=== PATIENT | male | born 1950 | race Caucasian/White ===

== ENCOUNTER 2020-09-28 16:57 | Emergency (ER) | payer MEDICARE, SELFPAY ==
--- NOTE | ~2020-09-28 | XR_ITS ---
EXAMINATION: XR ABDOMEN KUB CLINICAL INDICATION: G-tube position COMPARISON: None TECHNIQUE: AP view of the abdomen. FINDINGS: A G-tube is present in the left upper quadrant. Contrast has been injected which definitively shows the tip of the catheter into the within the stomach and Position. The bowel gas pattern is normal with no evidence of ileus or obstruction. No unusual soft tissue calcifications are noted. The bones are unremarkable. XR/XR abdomen 1V IMPRESSION: G-tube is present in the stomach
[2020-09-28 17:31] VITALS: BP 148/71; PULSE 60; RESP 20; TEMP 36.6; O2SAT 98; BMI 21.5
[2020-09-28 17:51] VITALS: BP 162/69; PULSE 58; RESP 18; TEMP 36.9; O2SAT 98
--- NOTE | 2020-09-28 17:53 | PC.NURSE ---
patient a&ox3, peg tube fell out, pt has old peg tube with him- 16F, patient has no c/o pain or discomfort at this time, vss, will continue to monitor.
--- NOTE | 2020-09-28 18:59 | PC.NURSE ---
provider inserted new g-tube size 18
--- NOTE | 2020-09-28 19:02 | ED_ITS ---
HPI - General Adult General Chief complaint: General Medical Stated complaint: G tube came out Time Seen by Provider: 09/28/20 18:46 Source: patient Mode of arrival: ambulatory Limitations: no limitations History of Present Illness HPI narrative: Patient comes to emergency room complaining dislodging his G- tube. Patient states he was taking a shower, then drawing his body, and he accidentally pulled the G-tube out. The G-tube was placed in June of 2020 per the patient. Patient denies any abdominal pain. MD complaint: Dislodged G-tube Related Data Allergies Allergy/AdvReac Type Severity Reaction Status Date / Time lisinopril [LISINOPRIL] Allergy Severe ANGIOEDEMA Unverified 05/05/20 17:04 Review of Systems Review of Systems: Constitutional : No Weight loss, No Fever, No Chills, No Night Sweats, No Fatigue, No Malaise ENT/Mouth : No Hearing loss, No Ear Pain, No Nasal Congestion, No Sinus Pain, No Hoarseness, No sore throat, No Rhinorrhea, No Swallowing Difficulty Eyes: No Eye Pain, No Swelling, No Redness, No Foreign Body, No Discharge, No Vision Changes Cardiovascular : No Chest Pain, No SOB, No Dyspnea on Exertion, No Orthopnea, No Edema, No Palpitations Respiratory : No Cough, No Sputum, No Wheezing, No Smoke Exposure, No Dyspnea Gastrointestinal : No Nausea, No Vomiting, No Diarrhea, No Constipation, No abdominal Pain, No Hematochezia, No Melena, dislodged G-tube Genitourinary : no irregular bleeding, No Dysuria, No Urinary Frequency, No Hematuria, No Urinary Incontinence, No Urgency, No Flank Pain, No Urinary Flow Changes, No Hesitancy Musculoskeletal : No joint pain, No Myalgias, No Joint Swelling Skin : No Skin Lesions, No rash Neuro : No Weakness, No Numbness, No Paresthesias, No Loss of Consciousness, No Dizziness, No Headache Psych : No Anxiety/Panic, No Depression, No SI/HI/AH/VH, No Social Issues, Heme/Lymph: No Bruising, No Bleeding,No Lymphadenopathy Endocrine : No Polyuria, No Polydipsia, No Temperature Intolerance PMFSH Past Medical History Medical History Falls frequently HTN (hypertension) Surgical History PEG (percutaneous endoscopic gastrostomy) status Social History Social History Alcohol intake: former Smoking Status: Former smoker Use of substances other than those prescribed or required for medical reasons: No Advance Directives: No Advance Directives Information Provided: No Physical Exam Vital Signs: Vital Signs: Last Vital Signs Temp 98.4 F 09/28/20 17:51 Pulse 58 09/28/20 17:51 Resp 18 09/28/20 17:51 BP 162/69 H 09/28/20 17:51 Pulse Ox 98 09/28/20 17:51 Body Mass Index 21.5 Appearance: Alert. Oriented X3. No acute distress. Eyes: Pupils equal, round and reactive to light. ENT: Pharynx normal. Neck: Normal inspection. Neck supple. No lymph nodes noted. No crepitus CVS: Normal heart rate and rhythm. Pulses normal. Normal S1 and S2 Respiratory: No respiratory distress. Breath sounds normal. No Wheezing. No r ales Abdomen: Soft and nontender. No rigidity. No distention. good BS x4, patent G- Tube stoma Skin: Skin warm and dry. Normal skin color. Normal skin turgor. Extremities: No lower extremity edema. No lower extremity edema. No Lacerations. No Rash Neuro: Oriented X 3. No motor deficit. No sensory deficit. Moving all extermities. No slurred speech. Course Course Course Narrative: Patient's stoma was patent, patient usually uses [place] 16 G tube, we did not have any in house, therefore 18 G tube was placed. Patient tolerated it well. Contrast was injected for a KUB, G-tube is currently placed. Medical Decision Making Imaging Data KUB for G-tube placement: My impression: G-tube placement is correct Discharge Plan Discharge Clinical Impression: Gastrostomy tube dysfunction Patient Disposition: Home, Self-Care Additional Instructions: Please follow-up with your primary care physician tomorrow. If you have any worsening or new symptoms, please return to the emergency room or call [phone]
--- NOTE | 2020-09-28 19:05 | PC.NURSE ---
xray in room to do kub
[2020-09-28] MEDS: Diatrizoate Meglumine, Sodium 30 ML SOLUTION PO (19:12)
== END 2020-09-28 19:32 | disposition home or self-care (01) ==
PROVIDERS: Emergency Provider Emergency Medicine; PCP Nurse Practitioner Family
DX: K94.23 Gastrostomy malfunction (principal); I10 Essential (primary) hypertension; Z91.81 History of falling
CPT/HCPCS: 43762; 74018; 99283; 99284

== ENCOUNTER 2020-10-19 12:06 | Outpatient (REF) | payer MEDICARE, SELFPAY ==
--- NOTE | ~2020-10-19 | XR_ITS ---
EXAMINATION: BILATERAL SHOULDER X-RAY CLINICAL INFORMATION: Pain COMPARISON: Bilateral shoulder x-ray March 2017 and April 2020 TECHNIQUE: 4 views of each shoulder FINDINGS: Left: Bone alignment is normal. No acute fracture or dislocation is seen. There is an old healed fracture of the left distal clavicle. There are old left second third and fourth rib fractures. The glenohumeral joint is normal. There is mild arthritis at the acromioclavicular joint. There is a small soft tissue calcification or ossification adjacent to the greater tuberosity. Right: Bone alignment is normal. No acute fracture or dislocation is seen. There is evidence of an old healed fracture of the distal clavicle. The glenohumeral joint is normal. There is mild arthritis at the acromioclavicular joint. Soft tissues are unremarkable. XR/XR cervical spine 4V IMPRESSION: Left shoulder: Old trauma to the distal clavicle and left second through fourth ribs. Arthritis at the acromioclavicular joint. Small soft tissue calcification adjacent to the greater tuberosity. Right shoulder: Old trauma to the distal clavicle. Arthritis at the acromioclavicular joint. EXAMINATION: Cervical spine x-ray CLINICAL INFORMATION: Neck pain COMPARISON: Previous cervical spine CT most recent April 2020 TECHNIQUE: 5 views of the cervical spine including bilateral oblique views FINDINGS: Lower cervical spine is not well visualized on the lateral view. Bone alignment is normal. No fracture or dislocation is seen. There is degenerative spondylosis and degenerative disc disease from C4-C5 to C6-C7.. There is mild right-sided neural foraminal narrowing from bony osteophyte at C4-C5 and C5-C6. There is mild left-sided neuroforaminal narrowing from bony osteophyte at C5-C6. Prevertebral soft tissues are normal. IMPRESSION: Degenerative changes of the lower cervical spine.
--- NOTE | ~2020-10-19 | XR_ITS ---
EXAMINATION: BILATERAL SHOULDER X-RAY CLINICAL INFORMATION: Pain COMPARISON: Bilateral shoulder x-ray March 2017 and April 2020 TECHNIQUE: 4 views of each shoulder FINDINGS: Left: Bone alignment is normal. No acute fracture or dislocation is seen. There is an old healed fracture of the left distal clavicle. There are old left second third and fourth rib fractures. The glenohumeral joint is normal. There is mild arthritis at the acromioclavicular joint. There is a small soft tissue calcification or ossification adjacent to the greater tuberosity. Right: Bone alignment is normal. No acute fracture or dislocation is seen. There is evidence of an old healed fracture of the distal clavicle. The glenohumeral joint is normal. There is mild arthritis at the acromioclavicular joint. Soft tissues are unremarkable. XR/XR shoulder RT min 2V IMPRESSION: Left shoulder: Old trauma to the distal clavicle and left second through fourth ribs. Arthritis at the acromioclavicular joint. Small soft tissue calcification adjacent to the greater tuberosity. Right shoulder: Old trauma to the distal clavicle. Arthritis at the acromioclavicular joint. EXAMINATION: Cervical spine x-ray CLINICAL INFORMATION: Neck pain COMPARISON: Previous cervical spine CT most recent April 2020 TECHNIQUE: 5 views of the cervical spine including bilateral oblique views FINDINGS: Lower cervical spine is not well visualized on the lateral view. Bone alignment is normal. No fracture or dislocation is seen. There is degenerative spondylosis and degenerative disc disease from C4-C5 to C6-C7.. There is mild right-sided neural foraminal narrowing from bony osteophyte at C4-C5 and C5-C6. There is mild left-sided neuroforaminal narrowing from bony osteophyte at C5-C6. Prevertebral soft tissues are normal. IMPRESSION: Degenerative changes of the lower cervical spine.
--- NOTE | ~2020-10-19 | XR_ITS ---
EXAMINATION: BILATERAL SHOULDER X-RAY CLINICAL INFORMATION: Pain COMPARISON: Bilateral shoulder x-ray March 2017 and April 2020 TECHNIQUE: 4 views of each shoulder FINDINGS: Left: Bone alignment is normal. No acute fracture or dislocation is seen. There is an old healed fracture of the left distal clavicle. There are old left second third and fourth rib fractures. The glenohumeral joint is normal. There is mild arthritis at the acromioclavicular joint. There is a small soft tissue calcification or ossification adjacent to the greater tuberosity. Right: Bone alignment is normal. No acute fracture or dislocation is seen. There is evidence of an old healed fracture of the distal clavicle. The glenohumeral joint is normal. There is mild arthritis at the acromioclavicular joint. Soft tissues are unremarkable. XR/XR shoulder LT min 2V IMPRESSION: Left shoulder: Old trauma to the distal clavicle and left second through fourth ribs. Arthritis at the acromioclavicular joint. Small soft tissue calcification adjacent to the greater tuberosity. Right shoulder: Old trauma to the distal clavicle. Arthritis at the acromioclavicular joint. EXAMINATION: Cervical spine x-ray CLINICAL INFORMATION: Neck pain COMPARISON: Previous cervical spine CT most recent April 2020 TECHNIQUE: 5 views of the cervical spine including bilateral oblique views FINDINGS: Lower cervical spine is not well visualized on the lateral view. Bone alignment is normal. No fracture or dislocation is seen. There is degenerative spondylosis and degenerative disc disease from C4-C5 to C6-C7.. There is mild right-sided neural foraminal narrowing from bony osteophyte at C4-C5 and C5-C6. There is mild left-sided neuroforaminal narrowing from bony osteophyte at C5-C6. Prevertebral soft tissues are normal. IMPRESSION: Degenerative changes of the lower cervical spine.
== END 2020-10-19 12:07 | disposition home or self-care (01) ==
LOC: HO.XRAY 12:06
PROVIDERS: PCP Internal Medicine; Visit Provider Internal Medicine
DX: M54.2 Cervicalgia (principal); M79.601 Pain in right arm; M79.602 Pain in left arm
CPT/HCPCS: 72050; 73030

== ENCOUNTER → 2020-11-28 10:12 | Outpatient (BNVA) | payer MEDICARE, SELFPAY | PROVIDERS: PCP Internal Medicine; Visit Provider Orthopaedic Surgery | DX: M75.102 Unspecified rotator cuff tear or rupture of left shoulder, not specified as traumatic (principal); R29.6 Repeated falls | CPT/HCPCS: 20610; 99202; J1100 ==

== ENCOUNTER → 2020-12-07 12:55 | Outpatient (BNVA) | payer MEDICARE, SELFPAY | PROVIDERS: PCP Internal Medicine; Visit Provider Nurse Practitioner Family | DX: G62.9 Polyneuropathy, unspecified (principal); M25.511 Pain in right shoulder; M25.512 Pain in left shoulder | CPT/HCPCS: 99202 ==

== ENCOUNTER 2020-12-26 10:43 | Outpatient (REF) | payer MEDICARE, SELFPAY ==
--- NOTE | ~2020-12-26 | CT_ITS ---
EXAMINATION: CT CHEST WITHOUT CONTRAST CLINICAL INFORMATION: Nicotine dependence COMPARISON: Previous chest x-ray most recent April 2020 TECHNIQUE: Multidetector volumetric CT imaging of the chest was done. Axial MIP volume rendering provided. Sagittal and coronal reformatted images were obtained. This CT examination was performed using dose optimization techniques as appropriate, variously including the following: *Automated exposure control *Adjustment of mA and/or kV according to patient size (this includes techniques or standardized protocols for targeted exams where dose is matched to indication/reason for exam; i.e. extremities or head) *Use of iterative reconstruction technique DLP: 170 mGy-cm FINDINGS: LUNGS: There is biapical pleural parenchymal scarring. There is evidence of emphysema. There is a abnormal parenchymal density seen in the right upper lobe adjacent to areas of emphysematous change. This measures approximately 0.8 x 1.2 cm axial image 72 series 7 and is unchanged. There are bilateral pulmonary nodules. Largest nodule is a 0.8 x 1.3 cm left lower lobe nodule axial image 460 series 7. This is increased in size from by 9 mm on most recent exam March 2017. Pulmonary nodules are otherwise stable. There is new subsegmental atelectasis in the left lower lobe. MEDIASTINUM: There is coronary artery calcification. The mediastinum is otherwise normal. PLEURA: There is a new trace left pleural effusion and loculated fluid in the left pleural fissure. There is no right pleural effusion. AXILLA: No lymphadenopathy. UPPER ABDOMEN: Unremarkable. OSSEOUS STRUCTURES: There are degenerative changes of the spine. There are old bilateral rib fractures. CT/CT chest wo con IMPRESSION: Emphysema. Question slight interval increase in size in the largest pulmonary nodule in the left lower lobe. Pulmonary nodules are otherwise stable. Coronary artery calcification.
== END 2020-12-26 10:44 | disposition home or self-care (01) ==
LOC: HO.CT 10:43
PROVIDERS: PCP Internal Medicine; Visit Provider Internal Medicine
DX: J44.9 Chronic obstructive pulmonary disease, unspecified (principal); F17.200 Nicotine dependence, unspecified, uncomplicated
CPT/HCPCS: 71250

== ENCOUNTER 2021-01-19 08:19 | Outpatient (REF) | payer MEDICARE, SELFPAY ==
--- NOTE | ~2021-01-19 | MR_ITS ---
MR CERVICAL SPINE WITHOUT IV CONTRAST CLINICAL INFORMATION: Cervical region radiculopathy. COMPARISON: None available. TECHNIQUE: MRI of the cervical spine was obtained using routine sequences without contrast. FINDINGS: Cervical alignment is maintained. Vertebral body heights are preserved. Moderate disc volume loss at C5-C6 and C6-C7. Modic type I endplate signal changes at C6-C7 and at T2-T3. There is no additional bone marrow edema. There are no acute fractures. Craniocervical junction is unremarkable. The cervical arterial flow voids are maintained. No significant extraspinal soft tissue findings. There is no cord signal abnormality. Multilevel endplate osteophytes. The partially imaged intracranial compartment is unremarkable. C2-C3: Disc contour is normal. No central canal stenosis and no foraminal stenosis. C3-C4: Central disc osteophyte protrusion and ligamentum flavum thickening mildly narrow the central canal. Advanced uncovertebral joint hypertrophy and hypertrophic facet arthropathy result in moderate to severe right and moderate left foraminal stenosis. C4-C5: Disc osteophyte mildly narrows the central canal. Uncovertebral joint hypertrophy and hypertrophic facet arthropathy result in mild to moderate left-sided foraminal stenosis C5-C6: Disc osteophyte without central canal stenosis. Uncovertebral joint hypertrophy and hypertrophic facet arthropathy result in mild bilateral foraminal encroachment. C6-C7: Disc osteophyte without central canal stenosis. Advanced uncovertebral joint hypertrophy and hypertrophic facet arthropathy result in severe left-sided foraminal stenosis. C7-T1: Disc osteophyte without central canal stenosis. Bilateral facet arthropathy. Mild bilateral foraminal encroachment. MR/MR cervical spine wo con IMPRESSION: Multilevel cervical spondylosis. Advanced spondylitic changes result in severe right and moderate left C3-C4 as well as severe left C6-7 foraminal stenosis. No severe central canal stenosis within the cervical spine.
== END 2021-01-19 08:20 | disposition home or self-care (01) ==
LOC: HO.MRI 08:19
PROVIDERS: Visit Provider Anesthesiology
DX: M54.12 Radiculopathy, cervical region (principal)
CPT/HCPCS: 72141

== ENCOUNTER 2021-03-27 10:25 | Outpatient (REF) | payer MEDICARE, SELFPAY ==
--- NOTE | ~2021-03-27 | XR_ITS ---
EXAMINATION: THORACIC AND LUMBAR SPINE. INDICATION: Low back pain. 3 views of the lumbosacral spine demonstrate [id number] degenerative changes. Loss of disc height at multiple levels with osteophytic change in the endplates. There is no listhesis or compression injury or significant scoliosis. Calcified aorta is seen more anterior. Likely degeneration of the posterior elements of the lower lumbar spine. 3 views of the thoracic spine show mild degenerative change. Loss of disc height which is mild. No listhesis or compression injury. XR/XR thoracic spine 2V IMPRESSION: Degenerative changes which appear [id number] in the lumbosacral spine and more mild in the thoracic spine. No listhesis or compression injury.
--- NOTE | ~2021-03-27 | XR_ITS ---
EXAMINATION: THORACIC AND LUMBAR SPINE. INDICATION: Low back pain. 3 views of the lumbosacral spine demonstrate [id number] degenerative changes. Loss of disc height at multiple levels with osteophytic change in the endplates. There is no listhesis or compression injury or significant scoliosis. Calcified aorta is seen more anterior. Likely degeneration of the posterior elements of the lower lumbar spine. 3 views of the thoracic spine show mild degenerative change. Loss of disc height which is mild. No listhesis or compression injury. XR/XR lumbar spine 2-3V IMPRESSION: Degenerative changes which appear [id number] in the lumbosacral spine and more mild in the thoracic spine. No listhesis or compression injury.
== END 2021-03-27 10:26 | disposition home or self-care (01) ==
LOC: HO.XRAY 10:25
PROVIDERS: PCP Internal Medicine; Visit Provider Psychiatry & Neurology Neurology
DX: M54.5 Low back pain (principal)
CPT/HCPCS: 72070; 72100

== ENCOUNTER → 2021-04-07 09:36 | Outpatient (BNVA) | payer MEDICARE, SELFPAY | PROVIDERS: PCP Internal Medicine; Visit Provider Urology | DX: R35.1 Nocturia (principal); R33.9 Retention of urine, unspecified | CPT/HCPCS: 51798; 99202 ==

== ENCOUNTER 2021-09-19 11:00 | Outpatient (REF) | payer MEDICARE, SELFPAY ==
[2021-09-19 12:31] LABS: Alanine Aminotransferase 7 U/L (0-40); Albumin Level 3.5 g/dL (3.5-5.0); Alkaline Phosphatase 73 U/L (39-117); Anion Gap 15 (12-20); Aspartate Amino Transferase 9 U/L (5-37); Bilirubin Direct 0.2 mg/dL (0.0-0.5); Bilirubin Total 0.4 mg/dL (0.0-1.0); Blood Urea Nitrogen 14 mg/dL (9-16); Calcium 8.6 mg/dL (8.4-10.2); Carbon Dioxide 21 mmol/L (22-29); Chloride 105 mmol/L (96-108); Estimated Glomerular Filt Rate 40; Glucose Random 78 mg/dL (60-115); Potassium 5.1 mmol/L (3.3-5.1); Sodium 136 mmol/L (135-145); Total Protein 7.2 g/dL (6.5-8.0)
== END 2021-09-19 11:01 | disposition home or self-care (01) ==
LOC: HO.LAB 11:00
PROVIDERS: PCP Internal Medicine; Visit Provider Psychiatry & Neurology Neurology
DX: R56.9 Unspecified convulsions (principal)
CPT/HCPCS: 36415; 80048; 80076

== ENCOUNTER 2022-02-01 09:25 | Outpatient (REF) | payer MEDICARE, SELFPAY ==
--- NOTE | ~2022-02-01 | XR_ITS ---
EXAMINATION: BILATERAL ANKLE X-RAY CLINICAL INFORMATION: Osteoarthritis COMPARISON: None TECHNIQUE: 3 views each ankle FINDINGS: Right: Bone alignment is normal. No fracture or dislocation is seen. The ankle mortise is normal. There is mild tissue arterial calcification. Soft tissues are otherwise normal. Left ankle: Bone alignment is normal. No fracture or dislocation is seen. The ankle mortise is normal. There is a small osteophyte projecting off the anterior navicular bone. There is mild arterial calcification. Soft tissues are otherwise normal. XR/XR ankle LT min 3V IMPRESSION: Soft tissue arterial calcification. Small osteophyte projecting off the anterior left navicular bone. Otherwise unremarkable exam.
--- NOTE | ~2022-02-01 | XR_ITS ---
EXAMINATION: BILATERAL ANKLE X-RAY CLINICAL INFORMATION: Osteoarthritis COMPARISON: None TECHNIQUE: 3 views each ankle FINDINGS: Right: Bone alignment is normal. No fracture or dislocation is seen. The ankle mortise is normal. There is mild tissue arterial calcification. Soft tissues are otherwise normal. Left ankle: Bone alignment is normal. No fracture or dislocation is seen. The ankle mortise is normal. There is a small osteophyte projecting off the anterior navicular bone. There is mild arterial calcification. Soft tissues are otherwise normal. XR/XR ankle RT min 3V IMPRESSION: Soft tissue arterial calcification. Small osteophyte projecting off the anterior left navicular bone. Otherwise unremarkable exam.
--- NOTE | ~2022-02-01 | XR_ITS ---
EXAMINATION: BILATERAL KNEE X-RAY CLINICAL INFORMATION: Osteoarthritis COMPARISON: Previous x-ray February 2020 TECHNIQUE: 3 views of each knee FINDINGS: Right: Bone alignment is normal. There may be an old healed fracture of the proximal fibular shaft. No acute fracture or dislocation is seen. The bones are osteopenic. Joint spaces are normal. There is no joint effusion. There is atherosclerotic disease. Left: Bone alignment is normal. No fracture or dislocation is seen. The joint spaces are normal. Bones are osteopenic. There is no joint effusion. There is atherosclerotic disease. XR/XR knee RT 3V IMPRESSION: Osteopenia and atherosclerotic disease. Old healed right proximal fibular shaft fracture.
--- NOTE | ~2022-02-01 | XR_ITS ---
EXAMINATION: BILATERAL KNEE X-RAY CLINICAL INFORMATION: Osteoarthritis COMPARISON: Previous x-ray February 2020 TECHNIQUE: 3 views of each knee FINDINGS: Right: Bone alignment is normal. There may be an old healed fracture of the proximal fibular shaft. No acute fracture or dislocation is seen. The bones are osteopenic. Joint spaces are normal. There is no joint effusion. There is atherosclerotic disease. Left: Bone alignment is normal. No fracture or dislocation is seen. The joint spaces are normal. Bones are osteopenic. There is no joint effusion. There is atherosclerotic disease. XR/XR knee LT 3V IMPRESSION: Osteopenia and atherosclerotic disease. Old healed right proximal fibular shaft fracture.
== END 2022-02-01 09:26 | disposition home or self-care (01) ==
LOC: HO.XRAY 09:25
PROVIDERS: PCP Internal Medicine; Visit Provider Psychiatry & Neurology Neurology
DX: M19.90 Unspecified osteoarthritis, unspecified site (principal)
CPT/HCPCS: 73562; 73610

== ENCOUNTER 2022-02-27 09:54 | Outpatient (REF) | payer OTHER, SELFPAY ==
--- NOTE | ~2022-02-27 | XR_ITS ---
EXAMINATION: XR LUMBOSACRAL SPINE CLINICAL INFORMATION: Low back pain and sciatica COMPARISON: Previous lumbar spine x-ray March 2021 TECHNIQUE: Three views of the lumbosacral spine. FINDINGS: Bone alignment is normal. No fracture or dislocation is seen. There is multilevel degenerative spondylosis. There is lower lumbar spine facet arthritis. Disc spaces are normal. There is atherosclerotic disease. XR/XR lumbar spine 2-3V IMPRESSION: Degenerative changes.
== END 2022-02-27 09:55 | disposition home or self-care (01) ==
LOC: HO.XRAY 09:54
PROVIDERS: Absent Provider Internal Medicine; PCP Internal Medicine; Visit Provider Registered Nurse Community Health
DX: M54.41 Lumbago with sciatica, right side (principal); M54.42 Lumbago with sciatica, left side
CPT/HCPCS: 72100